=== PATIENT | female | born 1935 | race African-American/Black ===

== ENCOUNTER 2017-03-27 22:10 | Emergency (ER) | payer MEDICARE ==
[~2017-03-27] VITALS: Ht 165.1 cm; Wt 49.9 kg
[~2017-03-27 22:10] MED LIST: LIPITOR80 MG ORAL; RISPERDAL0.25 MG ORAL
--- NOTE | 2017-03-27 22:14 | Emergency Room Report ---
History of Present Illness General Chief Complaint: General Complaint Source: Medical Record, EMS Present Illness HPI Is a 81-year-old female with a history of dementia and high blood pressure. She lives in a boarding care. At baseline she is confused but able to walk with phlebotomist lab assistant per EMS. She presents with chief complaint altered mental status and congestion. Onset today. No nausea no vomiting. Unknown fever complaint. No diarrhea. Slight cough. History is limited because she is unable to give a history. History is through EMS and penitentiary note. Allergies: Coded Allergies: No Known Allergies (Unverified , 03/10/16) Patient History Past Medical History: see triage record, old chart reviewed, HTN, dementia Past Surgical History: other Pertinent Family History: none Social History: Denies: smoking Last Menstrual Period: none Now: No Immunizations: other Reviewed Nursing Documentation: PMH: Agreed, PSxH: Agreed Nursing Documentation-PMH Hx Hypertension: Yes - multi infarct dementia Hx Asthma: Yes - venous stasis, pneumonia Review of Systems Constitutional: Reports: malaise, weakness All Other Systems: limited - Patient is nonverbal Physical Exam Vital Signs Date Time Temp Pulse Resp B/P (MAP) Pulse Ox O2 Delivery O2 Flow Rate FiO2 03/27/17 22:02 98.2 92 18 137/83 96 Room Air vitals with low-grade fever. Rectal temp is 100.3 Sp02 EP Interpretation: reviewed, normal General Appearance: no apparent distress, lethargic, Chronically Ill Head: normocephalic, atraumatic Eyes: bilateral eye PERRL, bilateral eye EOMI ENT: hearing grossly normal, normal pharynx, dry mucus membranes Neck: full range of motion, supple, no meningismus Respiratory: chest non-tender, lungs clear, normal breath sounds Cardiovascular #1: regular rate, rhythm, no murmur Gastrointestinal: normal bowel sounds, non tender, no mass, no organomegaly, no bruit, non-distended Musculoskeletal: back normal, normal range of motion Neurologic: grossly normal Skin: warm/dry Medical Decision Making Diagnostic Impression: Primary Impression: Encephalopathy acute Additional Impressions: Viral upper respiratory illness Weakness generalized ER Course Issue with generalize weakness and altered mental status. This probably encephalopathy from infectious illness. Most likely viral in nature. Her granddaughter, the buddhist monk has been coughing for the last week. Patient improved after IV fluid. She is more alert and responsive. I discussed the case at [facility] for transfer for penitentiary placement. [id number]. Lab Results Impression labs unremarkable EKG Diagnostic Results Rate: normal Rhythm: NSR ST Segments: no acute changes Rhythm Strip Diag. Results Rhythm Strip Time: 22:25 EP Interpretation: yes Rate: 94 Rhythm: NSR, no PVC's, no ectopy Chest X-Ray Diagnostic Results Chest X-Ray Diagnostic Results : Chest X-Ray Ordered: Yes # of Views/Limited/Complete: 1 View Indication: Shortness of Breath EP Interpretation: Yes Interpretation: no consolidation, no effusion, no pneumothorax, no acute cardiopulmonary disease Impression: No acute disease Electronically Signed by: Hever Loo MD Last Vital Signs Date Time Temp Pulse Resp B/P (MAP) Pulse Ox O2 Delivery O2 Flow Rate FiO2 03/27/17 22:02 98.2 92 18 137/83 96 Room Air Status: improved [facility] Condition: Stable HEVER LOO M.D. Mar 27, 2017 22:14
[2017-03-27 22:15] VITALS: BP 126/56
[2017-03-27 22:53] LABS: BASOPHILS % (AUTO) 1.7 % (0.0-2.0); EOSINOPHILS % (AUTO) 0.7 % (0.0-3.0); LYMPHOCYTES % (AUTO) 32.6 % (20.0-45.0); MEAN CORPUSCULAR HEMOGLOBIN 26.7 PG (27.0-31.0); MEAN CORPUSCULAR HGB CONC 30.1 G/DL (32.0-36.0); MEAN CORPUSCULAR VOLUME 89 FL (80-99); MEAN PLATELET VOLUME 9.6 FL (6.5-10.1); MONOCYTES % (AUTO) 7.6 % (1.0-10.0); NEUTROPHILS % (AUTO) 57.3 % (45.0-75.0); PLATELET COUNT 212 K/UL (150-450); RED BLOOD COUNT 4.37 M/UL (4.20-5.40); RED CELL DISTRIBUTION WIDTH 13.1 % (11.6-14.8); WHITE BLOOD COUNT 7.8 K/UL (4.8-10.8)
[2017-03-27 23:05] LABS: INR 0.9 (0.9-1.1); PROTHROMBIN TIME 9.3 SEC (9.30-11.50)
[2017-03-27 23:07] LABS: ANION GAP 4 mmol/L (5-15); CALCIUM 8.4 MG/DL (8.5-10.1); CARBON DIOXIDE 32 MMOL/L (21-32); CHLORIDE 104 MMOL/L (98-107); CREATININE 1.2 MG/DL (0.55-1.30); POTASSIUM 4.1 MMOL/L (3.5-5.1); SODIUM 140 MMOL/L (136-145)
[2017-03-27 23:30] VITALS: BP 140/63
[2017-03-27 23:30] LABS: ALANINE AMINOTRANSFERASE 75 U/L (12-78); ALBUMIN/GLOBULIN RATIO 0.8 (1.0-2.7); ASPARTATE AMINO TRANSFERASE 43 U/L (15-37); CKMB 1.3 NG/ML (0.0-3.6); MAGNESIUM 1.9 MG/DL (1.8-2.4); TOTAL PROTEIN 7.4 G/DL (6.4-8.2)
[2017-03-27 23:34] LABS: APPEARANCE,URINE CLEAR; KETONES,URINE NEGATIVE (NEGATIVE); LEUKOCYTE ESTERASE ,URINE NEGATIVE (NEGATIVE); NITRITE,URINE NEGATIVE (NEGATIVE); PH,URINE 6 (4.5-8.0); PROTEIN,URINE NEGATIVE (NEGATIVE); UROBILINOGEN,URINE NORMAL MG/DL (0.0-1.0)
[2017-03-28] MEDS ORDERED: Acetaminophen 500mg (ES) tab ORAL ONE (00:15)
[2017-03-28 00:30] VITALS: BP 134/82
[2017-03-28 01:35] VITALS: BP 130/98
[2017-03-28 01:53] VITALS: BP 130/98
--- NOTE | 2017-03-28 08:28 | Diagnostic Imaging Report ---
Indication: Altered mental status Technique: XRAY Chest 1v Comparison: 03/10/2016 Findings: Heart size and mediastinal contours are within normal limits and stable compared to the prior exam. There is no focal consolidation, pneumothorax or pleural effusion. The bones are demineralized. This limits evaluation of the thoracic spine. No acute osseous abnormality is appreciated. Surgical clips again noted in the epigastric region. Impression: No radiographic evidence of acute cardiopulmonary disease. No significant interval change from prior exam.
--- NOTE | 2017-03-29 15:03 | Cardiology Report ---
APPROVED REPORT EKG Measurement Heart [id number] Normal sinus rhythm Possible Anterior infarct, age undetermined Abnormal ECG
== END 2017-03-28 01:58 | disposition short-term general hospital (02) ==
LOC: EDBD 22:10 → EMR 22:30
DX: G93.40 Encephalopathy, unspecified (principal); J06.9 Acute upper respiratory infection, unspecified; B34.9 Viral infection, unspecified; R53.1 Weakness; R41.82 Altered mental status, unspecified
CPT/HCPCS: 36415; 71010; 80053; 81003; 82550; 82553; 83605; 83735; 84484; 85025; 85610; 85730; 86710; 87040; 93005; 96360; 96361; 99285

== ENCOUNTER 2017-04-10 16:35 | Emergency (ER) | payer MEDICARE ==
[~2017-04-10] VITALS: Ht 165.1 cm; Wt 49.9 kg
[2017-04-10] MEDS ORDERED: Sodium Chloride 500ML 500 ML IV ONE (16:59)
[2017-04-10 17:30] VITALS: BP 123/98
[2017-04-10 17:49] LABS: BASOPHILS % (AUTO) 1.2 % (0.0-2.0); EOSINOPHILS % (AUTO) 0.3 % (0.0-3.0); HEMATOCRIT 40.8 % (37.0-47.0); LYMPHOCYTES % (AUTO) 23.2 % (20.0-45.0); MEAN CORPUSCULAR VOLUME 91 FL (80-99); MONOCYTES % (AUTO) 6.5 % (1.0-10.0); NEUTROPHILS % (AUTO) 68.8 % (45.0-75.0); PLATELET COUNT 210 K/UL (150-450); RED BLOOD COUNT 4.49 M/UL (4.20-5.40); RED CELL DISTRIBUTION WIDTH 13.1 % (11.6-14.8); WHITE BLOOD COUNT 9.7 K/UL (4.8-10.8)
[2017-04-10 17:56] LABS: INR 0.9 (0.9-1.1)
[2017-04-10 18:04] LABS: ANION GAP 7 mmol/L (5-15); BLOOD UREA NITROGEN 26 mg/dL (7-18); CALCIUM 8.8 MG/DL (8.5-10.1); CARBON DIOXIDE 31 MMOL/L (21-32); CHLORIDE 99 MMOL/L (98-107); CREATININE 1.3 MG/DL (0.55-1.30); POTASSIUM 4.6 MMOL/L (3.5-5.1); SODIUM 136 MMOL/L (136-145)
[2017-04-10 18:20] LABS: ALANINE AMINOTRANSFERASE 33 U/L (12-78); ALBUMIN 3.4 G/DL (3.4-5.0); ALBUMIN/GLOBULIN RATIO 0.8 (1.0-2.7); ALKALINE PHOSPHATASE 74 U/L (46-116); ASPARTATE AMINO TRANSFERASE 29 U/L (15-37); BILIRUBIN,TOTAL 0.6 MG/DL (0.2-1.0); CKMB 0.6 NG/ML (0.0-3.6); CREATINE KINASE 259 U/L (26-308)
[2017-04-10 18:41] LABS: APPEARANCE,URINE CLOUDY; BILIRUBIN, URINE NEGATIVE (NEGATIVE); COLOR,URINE PALE YELLOW; GLUCOSE, URINE (UA) NEGATIVE (NEGATIVE); KETONES,URINE NEGATIVE (NEGATIVE); LEUKOCYTE ESTERASE ,URINE 3+ (NEGATIVE); NITRITE,URINE NEGATIVE (NEGATIVE); PH,URINE 9 (4.5-8.0); PROTEIN,URINE 3+ (NEGATIVE); UROBILINOGEN,URINE NORMAL MG/DL (0.0-1.0)
[2017-04-10 19:43] VITALS: BP 143/80
[2017-04-10] MEDS ORDERED: Acetaminophen 650 MG SUPP RECTAL ONE (19:45)
[2017-04-10 21:30] VITALS: BP 102/81
--- NOTE | 2017-04-10 23:07 | Emergency Room Report ---
History of Present Illness General Chief Complaint: Altered Level of Consciousness Source: Family Member Present Illness HPI Patient has a history of dementia. Patient presents emergency department today with acute altered mental status noted today. Patient is bedridden and incontinent. The diaper smells foul. Patient did not have history of fever. Unable to provide much history as patient is nonverbal. All the history was obtained from medical records and discussion with patient's caregiver and paramedics. Symptoms noted to be severe. No fevers or noted. No other modifying factors. No other associated signs and symptoms. No other complaints were noted. Allergies: Coded Allergies: No Known Allergies (Unverified , 03/10/16) Patient History Past Medical History: asthma, dementia Past Surgical History: none Pertinent Family History: none Social History Narrative unable to obtain, no history drug use Reviewed Nursing Documentation: PMH: Agreed, PSxH: Agreed Nursing Documentation-PMH Past Medical History: No History, Except For Hx Cardiac Problems: No - pna, aspiration pna, dementia Hx Asthma: Yes Hx Neurological Problems: Yes - Dementia Review of Systems All Other Systems: limited - poor mental status Physical Exam Vital Signs Date Time Temp Pulse Resp B/P (MAP) Pulse Ox O2 Delivery O2 Flow Rate FiO2 04/10/17 16:32 101.5 102 20 125/66 99 Room Air Sp02 EP Interpretation: reviewed, normal General Appearance: moderate distress - week, Chronically Ill Head: normocephalic Eyes: bilateral eye normal inspection ENT: normal ENT inspection, normal pharynx Neck: normal inspection, supple Respiratory: normal inspection, lungs clear, normal breath sounds, no respiratory distress, no retraction, no wheezing Cardiovascular #1: regular rate, rhythm, no edema Gastrointestinal: normal inspection, normal bowel sounds, soft, no hernia Genitourinary: no vertebral tenderness Musculoskeletal: normal inspection Neurologic: responsive - confused Psychiatric: other - unable to fully assess Skin: normal color, no rash Medical Decision Making Diagnostic Impression: Primary Impression: Altered level of consciousness Additional Impressions: UTI (urinary tract infection) Dehydration ER Course Patient presents emergency department today with altered mental status. Differential considerations include electrolyte abnormality, infection, CVA just to name a few.Given the severity of the patient's presentation I felt this is a highly complex patient. This patient required extensive workup. Patient' s exam is consistent with UTI. Patient's urine showed evidence UTI. Patient also appear to be dehydrated. Patient was given a fluid bolus and started on Rocephin IV antibiotics. Case was discussed with Dr. Carrera. Patient will be admitted to [facility]. Patient will be transferred to [facility] for further treatment. Labs Test 04/10/17 17:20 04/10/17 18:12 White Blood Count 9.7 K/UL (4.8-10.8) Red Blood Count 4.49 M/UL (4.20-5.40) Hemoglobin 12.0 G/DL (12.0-16.0) Hematocrit 40.8 % (37.0-47.0) Mean Corpuscular Volume 91 FL (80-99) Mean Corpuscular Hemoglobin 26.7 PG (27.0-31.0) Mean Corpuscular Hemoglobin Concent 29.4 G/DL (32.0-36.0) Red Cell Distribution Width 13.1 % (11.6-14.8) Platelet Count 210 K/UL (150-450) Mean Platelet Volume 7.7 FL (6.5-10.1) Neutrophils (%) (Auto) 68.8 % (45.0-75.0) Lymphocytes (%) (Auto) 23.2 % (20.0-45.0) Monocytes (%) (Auto) 6.5 % (1.0-10.0) Eosinophils (%) (Auto) 0.3 % (0.0-3.0) Basophils (%) (Auto) 1.2 % (0.0-2.0) Prothrombin Time 9.1 SEC (9.30-11.50) Prothromb Time International Ratio 0.9 (0.9-1.1) Activated Partial Thromboplast Time 25 SEC (23-33) Sodium Level 136 MMOL/L (136-145) Potassium Level 4.6 MMOL/L (3.5-5.1) Chloride Level 99 MMOL/L (98-107) Carbon Dioxide Level 31 MMOL/L (21-32) Anion Gap 7 mmol/L (5-15) Blood Urea Nitrogen 26 mg/dL (7-18) Creatinine 1.3 MG/DL (0.55-1.30) Estimat Glomerular Filtration Rate mL/min (>60) Glucose Level 96 MG/DL (74-106) Calcium Level 8.8 MG/DL (8.5-10.1) Total Bilirubin 0.6 MG/DL (0.2-1.0) Aspartate Amino Transf (AST/SGOT) 29 U/L (15-37) Alanine Aminotransferase (ALT/SGPT) 33 U/L (12-78) Alkaline Phosphatase 74 U/L (46-116) Total Creatine Kinase 259 U/L (26-308) Creatine Kinase MB 0.6 NG/ML (0.0-3.6) Creatine Kinase MB Relative Index 0.2 Troponin I 0.000 ng/mL (0.000-0.056) Pro-B-Type Natriuretic Peptide 63 pg/mL (0-125) Total Protein 7.9 G/DL (6.4-8.2) Albumin 3.4 G/DL (3.4-5.0) Globulin 4.5 g/dL Albumin/Globulin Ratio 0.8 (1.0-2.7) Lipase 118 U/L (73-393) Urine Color Pale yellow Urine Appearance Cloudy Urine pH 9 (4.5-8.0) Urine Specific [place] 1.015 (1.005-1.035) Urine Protein 3+ (NEGATIVE) Urine Glucose (UA) Negative (NEGATIVE) Urine Ketones Negative (NEGATIVE) Urine Occult Blood 5+ (NEGATIVE) Urine Nitrite Negative (NEGATIVE) Urine Bilirubin Negative (NEGATIVE) Urine Urobilinogen Normal MG/DL (0.0-1.0) Urine Leukocyte Esterase 3+ (NEGATIVE) Urine RBC 20-30 /HPF (0 - 2) Urine WBC Tntc /HPF (0 - 2) Urine Squamous Epithelial Cells Few /LPF (NONE/OCC) Urine Amorphous Sediment Many /LPF (NONE) Urine Bacteria Many /HPF (NONE) EKG Diagnostic Results Rate: normal Rhythm: NSR ST Segments: no acute changes Rhythm Strip Diag. Results EP Interpretation: yes Rate: 90 Rhythm: NSR, no PVC's, no ectopy Chest X-Ray Diagnostic Results Chest X-Ray Diagnostic Results : Chest X-Ray Ordered: Yes # of Views/Limited/Complete: 1 View Indication: Shortness of Breath EP Interpretation: Yes Interpretation: no consolidation, no effusion, no pneumothorax, no acute cardiopulmonary disease Impression: No acute disease Electronically Signed by: Dr. George Castellanos MD Last Vital Signs Date Time Temp Pulse Resp B/P (MAP) Pulse Ox O2 Delivery O2 Flow Rate FiO2 04/10/17 21:30 98.5 71 17 102/81 100 Room Air Status: improved Disposition: [facility] Condition: Serious Referrals: [facility] (PCP) GEORGE CASTELLANOS M.D. Apr 10, 2017 23:07
[2017-04-10 23:10] VITALS: BP 128/57
[2017-04-10 23:35] VITALS: BP 128/57
--- NOTE | 2017-04-18 16:00 | Cardiology Report ---
APPROVED REPORT EKG Measurement Heart [id number] Normal sinus rhythm Normal ECG
== END 2017-04-10 23:35 | disposition short-term general hospital (02) ==
LOC: EDBD 16:35 → EMR 17:00 → EDBEDREQ 18:52 → EMR 23:35
DX: N39.0 Urinary tract infection, site not specified (principal); E86.0 Dehydration; R41.82 Altered mental status, unspecified; F03.90 Unspecified dementia, unspecified severity, without behavioral disturbance, psychotic disturbance, mood disturbance, and anxiety; J45.909 Unspecified asthma, uncomplicated
CPT/HCPCS: 36415; 70450; 71045; 80053; 81003; 82550; 82553; 82962; 83690; 83880; 84484; 85025; 85610; 85730; 87040; 87081; 87086; 87181; 93005; 96361; 96374; 99285; J7040